=== PATIENT | female | born 1955 | race Caucasian/White ===

== ENCOUNTER 2022-03-02 11:14 | Outpatient (CLI) | payer OTHER, SELFPAY ==
--- NOTE | 2022-03-02 11:30 | TELERAD_ITS ---
Patient: GREGORIO SCHWAB Facility:?[facility] Patient ID:?[id number] Site Patient ID:?[id number] Site :?[id number] Study:?XRay-Breast Bilateral 3D W/CAD-03/02/2022 11:57:15 AM Ordering Physician:AMMY Final Report: BILATERAL MAMMOGRAM WITH COMPUTER-AIDED DETECTION AND TOMOSYNTHESIS TECHNIQUE: CC and MLO views were obtained. These mammographic images have been obtained using full-field digital technique. These mammographic images were interpreted with the benefit of computer-aided detection. Breast Tomosynthesis was used in this interpretation. COMPARISON FILM: 02/28/2021, 02/06/2020. FINDINGS: There are scattered areas of fibroglandular density IMPRESSION: There is no radiographic evidence for malignancy. ASSESSMENT: BI-RADS Category 1: Negative RECOMMENDATION: Routine screening mammogram in 1 year. A lay language report of this examination will be provided to the patient. Benedict Sinha M.D. Diagnostic Radiologist [email or web address] IGGY/humberto D& Transcribed: 6:09 p.mLeyla paul/Dictated by: Benedict Sinha MD @ 03/02/2022 6:04:00 PM Signed by:?Benedict Sinha MD @03/03/2022 8:51:23 AM (Electronic Signature)
== END 2022-03-02 11:15 | disposition home or self-care (01) ==
PROVIDERS: Visit Provider Internal Medicine Hematology & Oncology
DX: Z12.31 Encounter for screening mammogram for malignant neoplasm of breast (principal)
CPT/HCPCS: 77063; 77067

== ENCOUNTER 2022-08-31 12:59 | Outpatient (CLI) | payer OTHER, SELFPAY | END 2022-08-31 13:00 | disposition home or self-care (01) | LOC: RAD 13:01 | PROVIDERS: Visit Provider Internal Medicine Cardiovascular Disease | DX: I77.810 Thoracic aortic ectasia (principal); I34.0 Nonrheumatic mitral (valve) insufficiency | CPT/HCPCS: 93306 ==

== ENCOUNTER 2022-11-19 10:13 | Outpatient (RCR) | payer OTHER, SELFPAY | END 2023-05-18 23:59 | disposition home or self-care (01) | LOC: CCIC 10:13 | PROVIDERS: Visit Provider Physician Assistant | DX: C50.911 Malignant neoplasm of unspecified site of right female breast (principal); Z17.0 Estrogen receptor positive status [ER+]; Z79.811 Long term (current) use of aromatase inhibitors | CPT/HCPCS: 99212; 99214 ==

== ENCOUNTER 2023-01-28 14:52 | Outpatient (CLI) | payer OTHER, SELFPAY ==
--- NOTE | 2023-01-28 15:00 | CRLHL7_ITS ---
For Patients: As a result of the Cures Act, medical imaging exams and procedure reports are released immediately into your electronic medical record. You may view this report before your referring provider. If you have questions, please contact your health care provider. DXA BONE MINERAL DENSITY STUDY, 01/28/2023 Reason for exam: Prophylactic use of inhibitors. Current height (inches): 66.0 Weight (lbs.): 180.0 Menopause age: 56 Ethnicity: White 1. Have you had a previous hip or vertebral fracture? No. 2. Have you had any fractures during your adult life which did not result from significant trauma (e.g., auto accident)? No. 3. Did either of your parents have a hip fracture? No. 4. Do you smoke? No. 5. Have you ever taken Glucocorticoids? No. 6. Do you have rheumatoid arthritis? No. 7. Do you have secondary osteoporosis? No. 8. Do you drink 3 or more alcoholic drinks per day? No. 9. Are you being treated for osteoporosis? No. 10. Have you ever taken any of the following medications: Actonel, Evista, Fosamax, Miacalcin, Reclast, Boniva, Forteo, HRT (i.e., estrogen/hormone therapy), Protelos, Prolia, Vitamin D, Calcium, other ??? please specify. ANSWER: Yes; vitamin D and calcium. 11. Do you have any of the following medical conditions: Anorexia or bulimia, asthma or emphysema, end stage renal disease, hyperparathyroidism, any seizure disorders, cancer, inflammatory bowel diseases, hysterectomy, other ??? please specify. ANSWER: Yes; breast cancer. 12. What was your maximum height (inches)? 66.5. 13. Do you perform weightbearing exercise regularly? No. 14. Do you regularly consume dairy products? Yes. 15. Do you drink caffeinated beverages? No. 16. At what age did your period start? 15. 17. Are you premenopausal? No. 18. How many full-term pregnancies have you had? 0. 19. Have you ever missed your period for more than 6 months in a row (not including or menopause)? No. TECHNIQUE: Bone mineral density study was performed using the [employer]. FINDINGS: The results of the study expressed as bone mineral density (BMD) are as follows: Lumbar Spine L1 to L4: BMD: 0.937 g/cm2. T-score: -1.0. Z-score: 0.8. Neck Left: BMD: 0.811 g/cm2. T-score: -0.3. Z-score: 1.2. Right: BMD: 0.796 g/cm2. T-score: -0.5. Z-score: 1.1. Total Left: BMD: 0.981 g/cm2. T-score: 0.3. Z-score: 1.6. Right: BMD: 0.943 g/cm2. T-score: 0.0. Z-score: 1.3. IMPRESSION: Normal bone density. COMPARISON: Compared with scan of 05/22/2021, the bone mineral density has decreased by 2.4% at the spine and increased by 0.2% at the hip. Compared with scan of 08/11/2018, the bone mineral density has decreased by 1.5% at the spine and decreased by 0.9% at the hip. *Comparison exams done prior to 01/2020 were performed on different unit, [employer]. BENEDITC LIRIANO M.D. Diagnostic Radiologist [email or web address] Transcribed: 1:[address]/Dictated by: Benedict Liriano MD @ 01/29/2023 6:28:00 AM (Electronically Signed)
== END 2023-01-28 14:53 | disposition home or self-care (01) ==
LOC: RAD 14:55
PROVIDERS: Visit Provider Physician Assistant
DX: C50.911 Malignant neoplasm of unspecified site of right female breast (principal); Z79.811 Long term (current) use of aromatase inhibitors
CPT/HCPCS: 77080

== ENCOUNTER 2023-04-02 14:21 | Outpatient (CLI) | payer OTHER, SELFPAY ==
--- NOTE | 2023-04-02 14:40 | CRLHL7_ITS ---
For Patients: As a result of the Century Cures Act, medical imaging exams and procedure reports are released immediately into your electronic medical record. You may view this report before your referring provider. If you have questions, please contact your health care provider. BILATERAL DIGITAL SCREENING MAMMOGRAM WITH TOMOSYNTHESIS AND COMPUTER-AIDED DETECTION, 04/02/2023 CLINICAL HISTORY: 67-year-old female. RIGHT breast lumpectomy for breast cancer January 2016. Follow-up. TECHNIQUE: CC and MLO views were obtained. This digital study was evaluated with the assistance of computer-aided detection. Digital breast tomosynthesis utilized in interpretation. COMPARISON: March 02, 2022. FINDINGS: Breast composition: There are scattered areas of fibroglandular density. Postsurgical change from a RIGHT breast lumpectomy with architecture distortion and a subtle decrease in the size of the RIGHT breast relative to the LEFT. The appearance is unchanged. Nothing for malignancy on the LEFT. No change on the LEFT. Surgical clips RIGHT axilla. IMPRESSION: Postsurgical change RIGHT breast/RIGHT axilla. No change. Nothing specific for malignancy. Annual mammography recommended. ACR 2 benign findings. A lay language report of this examination will be provided to the patient. Dictated by: Cooper Lovell MD @04/05/2023 8:51:52 AM JR/Dictated by: Cooper Lovell MD @ 04/05/2023 8:51:00 AM (Electronically Signed)
== END 2023-04-02 14:22 | disposition home or self-care (01) ==
LOC: MAMMO 14:25
PROVIDERS: Visit Provider Internal Medicine Hematology & Oncology
DX: Z12.31 Encounter for screening mammogram for malignant neoplasm of breast (principal); Z85.3 Personal history of malignant neoplasm of breast
CPT/HCPCS: 77063; 77067

== ENCOUNTER 2023-05-14 09:52 | Outpatient (CLI) | payer OTHER, SELFPAY ==
--- NOTE | 2023-05-14 10:59 | W.ANESCHARGE ---
Anesthesia Charges Start Date/Time Anesthesia Start Date: 05/14/23 Anesthesia Start Time: 10:32 Stop Date/Time Anesthesia Stop Date: 05/14/23 Anesthesia Stop Time: 10:57
--- NOTE | 2023-05-14 11:11 | W.ANESCHARGE ---
Anesthesia Charges Start Date/Time Anesthesia Start Date: 05/14/23 Anesthesia Start Time: 10:32 Stop Date/Time Anesthesia Stop Date: 05/14/23 Anesthesia Stop Time: 10:57
== END 2023-05-14 09:53 | disposition home or self-care (01) ==
LOC: OP CLINIC 09:53
PROVIDERS: PCP Internal Medicine Hematology & Oncology; Visit Provider Internal Medicine
DX: Z12.11 Encounter for screening for malignant neoplasm of colon (principal); K63.5 Polyp of colon; K64.8 Other hemorrhoids; Z86.010 Personal history of colon polyps
CPT/HCPCS: 00811; 45380; 45385; 88305; J2704

== ENCOUNTER 2023-10-04 07:43 | Outpatient (CLI) | payer OTHER, SELFPAY ==
--- NOTE | 2023-12-23 12:04 | ONC.NURNOTE ---
[employer] called to let Hiramxiomara know that her RX for Letrozole was called in for her, also this was 2nd attempt to get a follow up appointment scheduled, voicemail was left.
== END 2023-10-04 07:44 | disposition home or self-care (01) ==
LOC: RAD 07:46
PROVIDERS: Visit Provider Internal Medicine
DX: I10 Essential (primary) hypertension (principal); I77.810 Thoracic aortic ectasia
CPT/HCPCS: 93306

== ENCOUNTER 2024-01-31 14:07 | Outpatient (RCR) | payer OTHER, SELFPAY | END 2024-07-29 23:59 | disposition home or self-care (01) | LOC: CCIC 14:07 | PROVIDERS: Visit Provider Physician Assistant | DX: C50.911 Malignant neoplasm of unspecified site of right female breast (principal); Z17.0 Estrogen receptor positive status [ER+]; Z79.811 Long term (current) use of aromatase inhibitors | CPT/HCPCS: 99214; G0463 ==

== ENCOUNTER 2024-08-24 15:36 | Outpatient (CLI) | payer OTHER, SELFPAY ==
--- NOTE | 2024-08-24 15:40 | CRLHL7_ITS ---
For Patients: As a result of the Century Cures Act, medical imaging exams and procedure reports are released immediately into your electronic medical record. You may view this report before your referring provider. If you have questions, please contact your health care provider. BILATERAL SCREENING MAMMOGRAM WITH COMPUTER-AIDED DETECTION AND TOMOSYNTHESIS TECHNIQUE: CC and MLO views were obtained. These mammographic images have been obtained using full-field digital technique. These mammographic images were interpreted with the benefit of computer-aided detection. Breast tomosynthesis was used in this interpretation. COMPARISON FILM: 04/02/23, 03/02/22, 02/28/21. FINDINGS: There are scattered areas of fibroglandular density. IMPRESSION: There is no radiographic evidence for malignancy. ASSESSMENT: BI-RADS Category 2: Benign RECOMMENDATION: Routine screening mammogram in 1 year. A lay language report of this examination will be provided to the patient. BENEDICT LIRIANO M.D. Diagnostic Radiologist [email or web address] IGGY/ana m Transcribed: 08/28/2024, 10:[address]/Dictated by: Benedict Liriano MD @ 08/25/2024 11:55:00 AM (Electronically Signed)
== END 2024-08-24 15:37 | disposition home or self-care (01) ==
LOC: MAMMO 15:40
PROVIDERS: Visit Provider Internal Medicine Hematology & Oncology
DX: Z12.31 Encounter for screening mammogram for malignant neoplasm of breast (principal)
CPT/HCPCS: 77063; 77067

== ENCOUNTER 2025-02-08 12:45 | Outpatient (CLI) | payer OTHER, SELFPAY ==
--- NOTE | 2025-02-08 13:00 | CRLHL7_ITS ---
For Patients: As a result of the Century Cures Act, medical imaging exams and procedure reports are released immediately into your electronic medical record. You may view this report before your referring provider. If you have questions, please contact your health care provider. XR DXA BONE MINERAL DENSITY (BMD) Current height (in): 66.0. Weight (lb): 180.0. Menopause age: 56. Ethnicity: White. Reason for exam: On aromatase inhibitors. 1. Have you had a previous hip or vertebral fracture? No. 2. Have you had any fractures during your adult life which did not result from significant trauma (e.g., auto accident)? No. 3. Did either of your parents have a hip fracture? No. 4. Do you smoke? No. 5. Have you ever taken Glucocorticoids? No. 6. Do you have rheumatoid arthritis? No. 7. Do you have secondary osteoporosis? No. 8. Do you drink 3 or more alcoholic drinks per day? No. 9. Are you being treated for osteoporosis? No. 10. Have you ever taken any of the following medications: Actonel, Evista, Fosamax, Miacalcin, Reclast, Boniva, Forteo, HRT (i.e. estrogen/hormone therapy), Protelos, Prolia, Vitamin D, Calcium, other ??? please specify. ANSWER: Yes, vitamin D, calcium. 11. Do you have any of the following medical conditions: Anorexia or bulimia, asthma or emphysema, end stage renal disease, hyperparathyroidism, any seizure disorders, cancer, inflammatory bowel diseases, hysterectomy, other ??? please specify. ANSWER: Yes, cancer. 12. What was your maximum height (inches)? 66.5. 13. Do you perform weight bearing exercise regularly? No. 14. Do you regularly consume dairy products? Yes. 15. Do you drink caffeinated beverages? No. 16. At what age did your period start? 15. 17. Are you premenopausal? No. 18. How many full-term pregnancies have you had? 0. 19. Have you ever missed your period for more than 6 months in a row (not including or menopause)? No. TECHNIQUE: Bone mineral density study was performed using the [employer]. FINDINGS: The results of the study expressed as bone mineral density (BMD) are as follows: Lumbar spine L1 to L4: BMD: 0.928 g/cm2. T-score: -1.1. Z-score: 0.8 Neck Left: BMD: 0.783 g/cm2. T-score: -0.6. Z-score: 1.0 Right: BMD: 0.732 g/cm2. T-score: -1.1. Z-score: 0.6 Total Left: BMD: 0.981 g/cm2. T-score: 0.3. Z-score: 1.7 Right: BMD: 0.944 g/cm2. T-score: 0.0. Z-score: 1.4 IMPRESSION: Osteopenia. *Comparison exams done prior to 01/2020 were performed on different unit, [email or web address]). COMPARISON: Compared with scan of 01/28/2023, the bone mineral density has decreased by 1.0 percent at the spine. FRAX 10-year Fracture Risk Major Osteoporotic Fracture: 8.5 percent Hip Fracture: 0.8 percent Reported Risk Factors: [place] () Neck BMD = 0.732, BMI = 29.1 Benedict Sinha M.D. Diagnostic Radiologist [email or web address] Transcribed: 4:36 pm DW/Dictated by: Benedict Sinha MD @ 02/08/2025 3:53:00 PM (Electronically Signed)
== END 2025-02-08 12:46 | disposition home or self-care (01) ==
LOC: RAD 12:46
PROVIDERS: PCP Family Medicine; Visit Provider Physician Assistant
DX: Z51.81 Encounter for therapeutic drug level monitoring (principal); M85.89 Other specified disorders of bone density and structure, multiple sites; Z79.811 Long term (current) use of aromatase inhibitors
CPT/HCPCS: 77080

== ENCOUNTER 2025-02-13 09:44 | Outpatient (RCR) | payer OTHER, SELFPAY | END 2025-08-12 23:59 | disposition home or self-care (01) | LOC: CCIC 09:44 | PROVIDERS: PCP Family Medicine; Visit Provider Internal Medicine Hematology & Oncology | DX: C50.911 Malignant neoplasm of unspecified site of right female breast (principal); Z17.0 Estrogen receptor positive status [ER+]; M85.80 Other specified disorders of bone density and structure, unspecified site; Z79.811 Long term (current) use of aromatase inhibitors | CPT/HCPCS: 99213; 99214; G0463 ==